=== PATIENT | female | born 1990 | race Two or more races ===

== ENCOUNTER 2018-05-26 11:24 | Outpatient (CLI) | payer MEDICAID, SELFPAY ==
[2018-05-26 11:51] VITALS: BP 140/81; PULSE 145; RESP 18; TEMP 36.8; O2SAT 100; BMI 28.3
[2018-05-26 12:16] LABS: Microscopic, Urine URINE MICROSCOPIC (MICROSCOPIC)
[2018-05-26 12:25] LABS: Appearance,Urine SL CLOUDY (Clear); Bilirubin,Urine Negative (Negative); Blood, Urine Negative (Negative); Color,Urine YELLOW (Yellow); Glucose,Urine (UA) Negative (Negative); Ketones,Urine Negative (Negative); Leukocyte Esterase,Urine Negative (Negative); Nitrate,Urine Negative (Negative); PH,Urine 6.5 (5.0-8.5); Protein,Urine Negative (Negative); Specific Gravity, Urine <= 1.005 (1.005-1.030); Urobilinogen,Urine 0.2 EU/dl (0.2)
[2018-05-26 12:34] LABS: Bacteria,Urine Trace /lpf; Squamous Epithelial Cell,Urine Occasional #/hpf (0-5)
--- NOTE | 2018-05-26 12:42 | US_ITS ---
US OB BPP w/Fet-Mat INDICATION: . Right-sided pain NO RECORDS ON FILE. Previous care in [place]:. ORDERING PHYSICIAN: Referral ProviderMD PATIENT AGE: 27 years TECHNIQUE: ultrasound transabdominal scanning. MW COMPARISON: No previous relevant studies. FINDINGS: Single viable intrauterine gestation. Cephalic position Currently. Placenta: Fundal and wraps lateral] to the right,... Placenta grade 1. No previa There is adequate amount fluid. ARSALAN 13.58 The cervix appears satisfactory. Closed and measuring 3.5 cm in length. Limited survey performed was unremarkable on the submitted images as in PACS. . ( Prior scans & Patient's earlier care was in [place]). No discrete anomalies identified on today's overview survey imaging by technologist. Active fetus.Three-vessel cord with satisfactory umbilical cord insertion. Limited views of brain & ventricles satisfactory. Posterior fossa unremarkable Images the face unremarkable... Region of [place] unremarkable Limited views of abdomen, chest,, & diaphragm unremarkable. Normal stomach bubble. Region of kidneys unremarkable. 4- chamber heart imaged. Cine loop included. LVOT imaged Submitted limited views of spine appear satisfactory. Arms and legs imaged & unremarkable. Appears to be a female fetus Maternal adnexa: No significant findings encountered. Measurements: Average ultrasound age 35 weeks 0 days. Gestational Age 31 week 3 days based on L2 MP of a 2418. Estimated due date by ultrasound age 506/30/2018. Estimated weight 2505 grams. +/- 366 g LMP Percentile 98% BPD = 34 week 6 day OFD = 37 week 2 day HC = 35 week 2 day AC = 34 week 6 day FL = 34 week 4 day Heart Rate = 150 BPM HC/AC = 1.02.(1.09-1.26.) CI = 77%.(70-86%). FL/BPD is 78% (71-87%. FL/AC is 22%. WNL ARSALAN = 13.58. Largest pocket measuring 5.02 cm at left lower quadrant ====== IMPRESSION: Single active intrauterine gestation 35 week 0 day Average Ultrasound Age ... Cephalic position. ... Fetus is active.. ... Today's limited overview anatomical survey was unremarkable. ... Placenta fundal and wraps to the right. Grade 1 . No previa ARSALAN = 13.5 .
--- NOTE | 2018-05-26 12:42 | US_ITS ---
US gallbladder Ordering Physician: Referral Provider Patient Age: 27 years: Female HISTORY: ITS.REASON: RIGHT SIDED FLANK PAIN 35 weeks average ultrasound age fetus TECHNIQUE: Upper quadrant ultrasound COMPARISON :No renal studies for comparison.. OB ultrasound from today noted FINDINGS Pancreas. Not well seen but region of pancreas grossly unremarkable Gallbladder partially contracted no gallstones. No sludge. Normal gallbladder wall thickness. Liver. Slight increased echogenicity may reflect mild fatty changes but but no focal lesions. No biliary ductal dilatation. Portal vein normal caliber and direction flow. Common duct normal diameter 3.2 mm at hilum of liver. No free fluid abdomen Right kidney 9.3 cm in length. Mild, minimal hydronephrosis evident on right. Appearance could be compatible with hydronephrosis of although cannot totally exclude a ureteral stone cortex is well-maintained right kidney. IMPRESSION Mild hydronephrosis of the right kidney with mild dilatation of the visualized proximal most right ureter. Appearance most likely reflecting hydronephrosis of but stone or other processes cannot be excluded Gallbladder & common duct unremarkable.. Liver. No focal findings: perhaps mild subtle diffuse fatty change
[2018-05-26 13:09] LABS: Anion Gap 13.9 mEq/L (5-15); Blood Urea Nitrogen 7 mg/dL (7-18); Calcium 8.8 mg/dL (8.5-10.1); Carbon Dioxide 24 mmol/L (21.0-32.0); Chloride 104 mmol/L (98-107); Creatinine Clearance Estimated 122 mL/min (50-200); Creatinine,Serum 0.75 mg/dL (0.55-1.02); Estimated Glomerular Filt Rate 93 ml/min (>60); GFR (African American) 113 ML/MIN (>60); Glucose 114 mg/dL (74-106); Potassium 3.9 mmoL/L (3.5-5.1); Sodium 138 mmol/L (136-145)
[2018-05-26 13:19] LABS: Basophils % 0.3 % (0.1-2.0); Eosinophils # 0.2 K/mm3 (0.0-0.4); Eosinophils % 1.8 % (0.1-12.0); Hematocrit 30.1 % (37.0-47.0); Hemoglobin 9.5 g/dL (12.2-16.2); Lymphocytes # 2.1 K/mm3 (0.7-4.5); Lymphocytes % 18.6 % (10-50); Mean Corpuscular HGB Conc 31.4 g/dL (31.8-35.4); Mean Corpuscular Hemoglobin 23.6 pg (27.0-31.2); Mean Corpuscular Volume 75.1 fl (81-99); Mean Platelet Volume 6.9 fl (7.4-10.4); Monocytes # 0.7 K/mm3 (0.1-1.0); Monocytes % 6.6 % (1.7-9.3); Neutrophils % 72.7 % (37.0-80.0); Platelet Count 327 K/mm3 (142-424); Red Blood Count 4.01 M/mm3 (4.20-5.40); Red Cell Distribution Width 14.6 % (11.5-17.5); White Blood Count 11.1 K/mm3 (4.8-10.8)
== END 2018-05-26 14:43 | disposition home or self-care (01) ==
LOC: OBOUT 11:29 → OB 11:30
PROVIDERS: Visit Provider Obstetrics & Gynecology
DX: O26.93 Pregnancy related conditions, unspecified, third trimester (principal); Z3A.31 31 weeks gestation of pregnancy; R10.11 Right upper quadrant pain
CPT/HCPCS: 36415; 59025; 76705; 76811; 76819; 76820; 80048; 81001; 85025

== ENCOUNTER → 2018-06-06 11:24 | Outpatient (CLI) | payer MEDICAID, SELFPAY | PROVIDERS: Visit Provider Obstetrics & Gynecology | DX: Z34.90 Encounter for supervision of normal pregnancy, unspecified, unspecified trimester (principal) | CPT/HCPCS: 86403 ==

== ENCOUNTER → 2018-06-06 12:35 | Outpatient (CLI) | payer MEDICAID, SELFPAY ==
[2018-06-06 13:05] LABS: Basophils % 0.2 % (0.1-2.0); Eosinophils # 0.2 K/mm3 (0.0-0.4); Eosinophils % 1.6 % (0.1-12.0); Hematocrit 30.7 % (37.0-47.0); Hemoglobin 9.7 g/dL (12.2-16.2); Mean Corpuscular HGB Conc 31.7 g/dL (31.8-35.4); Mean Corpuscular Hemoglobin 22.9 pg (27.0-31.2); Mean Corpuscular Volume 72.4 fl (81-99); Mean Platelet Volume 7.1 fl (7.4-10.4); Monocytes # 0.6 K/mm3 (0.1-1.0); Monocytes % 5.5 % (1.7-9.3); Neutrophils # 7.9 K/mm3 (1.8-7.8); Neutrophils % 73.7 % (37.0-80.0); Platelet Count 335 K/mm3 (142-424); Red Blood Count 4.24 M/mm3 (4.20-5.40); Red Cell Distribution Width 15.2 % (11.5-17.5); White Blood Count 10.7 K/mm3 (4.8-10.8)
[2018-06-06 14:31] LABS: Thyroid Stimulating Hormone 3.27 uIU/ml (0.358-3.740)
[2018-06-06 14:40] LABS: Amphetamine/Metha Screen,Urine Negative ng/mL (<1000); Barbiturates Screen,Urine Negative ng/mL (<200); Benzodiazepines Screen,Urine Negative ng/mL (<200); Cannabinoid Screen,Urine Negative ng/mL (<50); Cocaine Screen,Urine Negative ng/mL (<300); Methadone Screen,Urine Negative ng/mL (<300); Opiate Screen,Urine Negative ng/mL (<300); Phencyclidine Screen,Urine Negative ng/mL (<25)
[2018-06-07 18:06] LABS: HIV Screen 4th Generation wRfx Non Reactive (Non Reactive); Hepatitis B Surface Antigen Negative (Negative); Hepatitis C Antibody <0.1 s/co ratio (0.0-0.9); Rapid Plasma Reagin Ab Titer Non Reactive (NonRea<1:1); Rubella Antibodies, IgG 9.65 index (Immune >0.99)
== END ==
PROVIDERS: Visit Provider Obstetrics & Gynecology
DX: Z34.90 Encounter for supervision of normal pregnancy, unspecified, unspecified trimester (principal)
CPT/HCPCS: 36415; 80305; 84443; 85025; 86403; 86592; 86703; 86762; 86850; 87340; 87380; G0432

== ENCOUNTER 2018-06-23 05:23 | Inpatient (IN) ==
[2018-06-23 06:12] LABS: Basophils % 0.3 % (0.1-2.0); Eosinophils # 0.4 K/mm3 (0.0-0.4); Eosinophils % 3.4 % (0.1-12.0); Hematocrit 30.5 % (37.0-47.0); Hemoglobin 9.6 g/dL (12.2-16.2); Lymphocytes % 26.8 % (10-50); Mean Corpuscular HGB Conc 31.4 g/dL (31.8-35.4); Mean Corpuscular Hemoglobin 22.2 pg (27.0-31.2); Mean Corpuscular Volume 70.7 fl (81-99); Mean Platelet Volume 7.5 fl (7.4-10.4); Monocytes # 0.7 K/mm3 (0.1-1.0); Neutrophils % 63.4 % (37.0-80.0); Platelet Count 322 K/mm3 (142-424); Red Blood Count 4.31 M/mm3 (4.20-5.40); Red Cell Distribution Width 16.3 % (11.5-17.5); White Blood Count 11.1 K/mm3 (4.8-10.8)
[2018-06-23 06:22] LABS: Amphetamine/Metha Screen,Urine Negative ng/mL (<1000); Barbiturates Screen,Urine Negative ng/mL (<200); Benzodiazepines Screen,Urine Negative ng/mL (<200); Cannabinoid Screen,Urine Negative ng/mL (<50); Cocaine Screen,Urine Negative ng/mL (<300); Methadone Screen,Urine Negative ng/mL (<300); Opiate Screen,Urine Negative ng/mL (<300); Phencyclidine Screen,Urine Negative ng/mL (<25)
[2018-06-23 06:37] LABS: Anion Gap 11.5 mEq/L (5-15); Calcium 8.9 mg/dL (8.5-10.1); Potassium 4.5 mmoL/L (3.5-5.1)
--- NOTE | 2018-06-23 08:10 | Progress Note ---
[facility] Anesthesia Checklist - Structural Data Admitted From: Inpatient Planned Operative Procedure/s: c/section Consent for Planned Operative Procedure(s) Verified: Yes - Airway Assessment C-Spine Mobility Assessed: Yes TMJ Mobility Assessed: Yes Dentition: Good Dentition - Neurological Assessment Level of Consciousness: Awake, Alert, Appropriate - Anesthesia Plan Anesthesia Risk discussed: Yes Anesthesia Plan: Verified ASA Class: II Anesthesia Type: Spinal [facility] History I have reviewed the patient's past medical history: Yes *Have you ever received a pneumonia vaccine?: No *Have you received a flu vaccine this season?: No Other Surgeries: Yes: Amputation: No Fractures: No - *Social History Smoking Status: Current every day smoker Alcohol Intake: never Alcohol Intake Frequency:: other Substance Use Type: denies use *Occupational Status:: unemployed Family Hx:: No significant family history Para: 1
--- NOTE | 2018-06-23 08:11 | Progress Note ---
[facility] Anesthesia Record Part II Discharge Time: 08:35 Destination: Obstetric PACU nurse assessment reviewed?: Yes Patient Condition:: Good Anesthesia Complications:: None Swallowing reflex intact?: Yes Cyanosis?: No
--- NOTE | 2018-06-23 08:11 | Progress Note ---
[facility] Anesthesia Record Part I Intake, IV Amount: 1,500 Estimated blood loss (mL): 500 Urine output (mL): 225 Blood Pressure: 94/41 SaO2: 92 Pulse Rate: 115 Respiratory Rate: 12 Temperature: 97.9 F Patient is:: Awake, Stable Stable to PACU at:: 08:05
--- NOTE | 2018-06-23 08:12 | Operative Note ---
Date of procedure: 06/23/18 Pre-op Diagnosis:: 1. Term intrauterine . 2. Previous section. Post-op Diagnosis:: 1. Term intrauterine . 2. Previous section. 3. 9/9, 7 pound 3 ounce, 19 inch female infant, born at 0738. Procedure performed:: Repeat low transverse cervical section Surgeon:: Chele Ny MD Car Pilot(s):: Dr. Young CHEMICAL ANALYST:: Joaquín Kwan Anesthesia: spinal Estimated blood loss (mL): 400 Operative findings:: Term intrauterine , delivered. Operative note:: After the patient was prepped and draped in usual fashion and spinal anesthesia was administered, a low Pfannenstiel incision was made across the midline through the previous incision, and the fat and fascia were in the usual fashion, bleeders being clamped and coagulated along the way. The peritoneum was entered with Metzenbaum scissors, and extended above and below. The bladder peritoneum was sharply and bluntly dissected from the area of incision, and the bladder was protected with a bladder blade. The uterus was entered in the low transverse fashion with a knife, and the incision was extended bluntly, bilaterally. The baby was found to be in the LOP position of the vertex and, with appropriate fundal pressure, the head was easily delivered. There was no meconium, nor was there a nuchal cord. The baby's nasal and oropharynx were bulb suctioned, and the baby cried spontaneously on the abdomen, as was delivered. The cord was clamped and cut, 3 vessels were noted to be within the cord, and cord blood was obtained. The cord pH was 7.282. The baby was handed into the arms of the attending RN, was assigned Apgars of 9 at 1 minute and 9 at 5 minutes to this 7 pound 3 ounce, 19 inch female , born at 0738. Baby was taken to the nursery in excellent condition, along with the father, who is been present in the operating room. A ring forceps was used to assure adequate drainage to the cervix; this was then passed off the field as a nonsterile instrument. Uterus was closed in 2 layers, the first a running locked suture of #1 Vicryl as an endometrial layer, followed by a running unlocked suture of #1 Vicryl as a myometrial layer, imbricating over the first. The bladder peritoneum was closed with a running unlocked suture of 2-0 Vicryl. Blood and clots were then swept from the gutters, and the tubes and ovaries were inspected and found to be normal. The peritoneum was grasped with 3 Makayla clamps, and closed with a running semi-lock suture of 0 Vicryl. The muscle was approximated with a running unlocked suture of 0 Vicryl. The fascia was closed with a running locked suture of #1 Vicryl. The subcutaneous fat and Brianna's fascia were closed with a running unlocked suture of 2-0 Vicryl. The skin was closed with a subcuticular suture of 3-0 Vicryl, and appropriately dressed. The sponge and needle counts correct. The urine was clear in the Prieto catheter. The estimated blood loss was 400 cc. A pelvic examination at the close of the procedure expressed blood and clots from the involuting uterus, with IV Pitocin running. The patient tolerated the procedure well, and was taken to PACU in excellent condition. Her blood type is B+. Her rubella titer is immune. She plans to breast-feed. Condition: stable Disposition: PACU Specimens:: None Complications:: None
--- NOTE | 2018-06-23 16:35 | Progress Note ---
Internal Medicine - PN: Subj *Date: 06/23/18 *Time: 16:34 Interval history: This is day of surgery and delivery. The patient is afebrile. Vital signs stable. Wound clean. Abdomen soft. Lochia normal. Uterine fundus involuting well. Impression: Stable. Baby is doing well and breast-feeding. Exam Vital signs and Labs for Last 24 Hours: Temp Pulse Resp BP Pulse Ox 97.4 F L 94 H 16 112/72 99 06/23/18 08:35 06/23/18 08:35 06/23/18 08:35 06/23/18 08:35 06/23/18 08:35 Laboratory Results - last 24 hr 06/23/18 05:30: Urine Opiates Screen Negative, Urine Methadone Screen Negative, Ur Barbituates Screen Negative, Ur Phencyclidine Scrn Negative, Ur Amphetamines Screen Negative, U Benzodiazepines Scrn Negative, Urine Cocaine Screen Negative, U Marijuana (THC) Screen Negative 06/23/18 05:55: Sodium 136, Potassium 4.5, Chloride 105, Carbon Dioxide 24, Anion Gap 11.5, BUN 10, Creatinine 0.84, Estimated Creat Clear 114, Estimated GFR 82, Est GFR ( Amer) 99, Glucose 82, Calcium 8.9 06/23/18 05:55: WBC 11.1 H, RBC 4.31, Hgb 9.6 L, Hct 30.5 L, MCV 70.7 L, MCH 22.2 L, MCHC 31.4 L, RDW 16.3, Plt Count 322, MPV 7.5, Neut % (Auto) 63.4, Lymph % (Auto) 26.8, [place] % (Auto) 6.0, Eos % (Auto) 3.4, Baso % (Auto) 0.3, Neut # (Auto) 7.0, Lymph # (Auto) 3.0, [place] # (Auto) 0.7, Eos # (Auto) 0.4, Baso # (Auto) 0.0 06/23/18 05:55: Blood Type B Positive, Antibody Screen Negative 06/23/18 07:20: Urine Color Yellow, Urine Appearance Clear, Urine pH 7.0, Ur Specific [place] <= 1.005, Urine Protein Negative, Urine Glucose (UA) Negative, Urine Ketones Negative, Urine Blood Negative, Urine Nitrate Negative, Urine Bilirubin Negative, Urine Urobilinogen 0.2, Ur Leukocyte Esterase Negative, Urine WBC Occasional, Ur Squamous Epith Cells Occasional, Urine Bacteria Trace 06/23/18 07:44: Cord ABG pH 7.28 L I & O for Last 24 hours: Intake & Output 06/21/18 06/22/18 06/23/18 06/24/18 11:59 11:59 11:59 11:59 Intake Total 1710 / 1710 Output Total 75 / 75 Balance 1635 / 1635 Weight 156 lb 8 oz
[2018-06-23 21:14] VITALS: BP 118/76
--- NOTE | 2018-06-24 06:30 | Progress Note ---
Internal Medicine - PN: Subj *Date: 06/24/18 *Time: 06:29 Interval history: This is /postop day #1. The patient is afebrile. Vital signs stable. Wound clean. Abdomen soft. Lochia normal. Uterine fundus involuting well. Her hemoglobin is 9.6 g, but she is clinically stable. She is attempting to breast-feed but is also supplementing with a bottle. Pression: Stable. Exam Vital signs and Labs for Last 24 Hours: Temp Pulse Resp BP Pulse Ox 98.9 F 96 H 18 118/76 96 06/23/18 20:10 06/23/18 20:10 06/23/18 20:10 06/23/18 20:10 06/23/18 20:10 Laboratory Results - last 24 hr 06/23/18 05:30: Urine Opiates Screen Negative, Urine Methadone Screen Negative, Ur Barbituates Screen Negative, Ur Phencyclidine Scrn Negative, Ur Amphetamines Screen Negative, U Benzodiazepines Scrn Negative, Urine Cocaine Screen Negative, U Marijuana (THC) Screen Negative 06/23/18 05:55: Sodium 136, Potassium 4.5, Chloride 105, Carbon Dioxide 24, Anion Gap 11.5, BUN 10, Creatinine 0.84, Estimated Creat Clear 114, Estimated GFR 82, Est GFR ( Amer) 99, Glucose 82, Calcium 8.9 06/23/18 05:55: WBC 11.1 H, RBC 4.31, Hgb 9.6 L, Hct 30.5 L, MCV 70.7 L, MCH 22.2 L, MCHC 31.4 L, RDW 16.3, Plt Count 322, MPV 7.5, Neut % (Auto) 63.4, Lymph % (Auto) 26.8, [place] % (Auto) 6.0, Eos % (Auto) 3.4, Baso % (Auto) 0.3, Neut # (Auto) 7.0, Lymph # (Auto) 3.0, Bureau # (Auto) 0.7, Eos # (Auto) 0.4, Baso # (Auto) 0.0 06/23/18 05:55: Blood Type B Positive, Antibody Screen Negative 06/23/18 07:20: Urine Color Yellow, Urine Appearance Clear, Urine pH 7.0, Ur Specific [place] <= 1.005, Urine Protein Negative, Urine Glucose (UA) Negative, Urine Ketones Negative, Urine Blood Negative, Urine Nitrate Negative, Urine Bilirubin Negative, Urine Urobilinogen 0.2, Ur Leukocyte Esterase Negative, Ur ine WBC Occasional, Ur Squamous Epith Cells Occasional, Urine Bacteria Trace 06/23/18 07:44: Cord ABG pH 7.28 L I & O for Last 24 hours: Intake & Output 06/21/18 06/22/18 06/23/18 06/24/18 11:59 11:59 11:59 11:59 Intake Total 1710 / 1710 Output Total 75 / 75 Balance 1635 / 1635 Weight 156 lb 8 oz
[2018-06-24 07:20] LABS: Basophils % 0.1 % (0.1-2.0); Eosinophils # 0.1 K/mm3 (0.0-0.4); Eosinophils % 0.6 % (0.1-12.0); Hematocrit 27.5 % (37.0-47.0); Hemoglobin 8.6 g/dL (12.2-16.2); Lymphocytes # 2.7 K/mm3 (0.7-4.5); Mean Corpuscular HGB Conc 31.1 g/dL (31.8-35.4); Mean Corpuscular Hemoglobin 21.9 pg (27.0-31.2); Mean Corpuscular Volume 70.3 fl (81-99); Mean Platelet Volume 7.2 fl (7.4-10.4); Monocytes # 1.1 K/mm3 (0.1-1.0); Monocytes % 5.1 % (1.7-9.3); Neutrophils # 18.4 K/mm3 (1.8-7.8); Neutrophils % 82.2 % (37.0-80.0); Platelet Count 295 K/mm3 (142-424); Red Blood Count 3.92 M/mm3 (4.20-5.40); Red Cell Distribution Width 16.7 % (11.5-17.5); White Blood Count 22.4 K/mm3 (4.8-10.8)
--- NOTE | 2018-06-24 10:52 | Pharmacy Consult Notes ---
[facility] Pharmacy VTE Monitoring - Patient Demographics Admission date: 06/23/18 Report Date: 06/24/18 Time: 10:52 Allergies/Adverse Reactions: Patient Allergies No Known Allergies Allergy (Verified 06/12/18 10:40) Height: 1.55 m Weight: 70.987 kg - VTE Risk Labs: VTE Related Lab Results Hgb 8.6 g/dL (12.2-16.2) L 06/24/18 06:50 Hct 27.5 % (37.0-47.0) L 06/24/18 06:50 Plt Count 295 K/mm3 (142-424) 06/24/18 06:50 BUN 10 mg/dL (7-18) 06/23/18 05:55 Creatinine 0.84 mg/dL (0.55-1.02) 06/23/18 05:55 Estimated Creat Clear 114 mL/min (50-200) 06/23/18 05:55 - Prophylaxis VTE Prophylaxis Ordered?: Yes Types of VTE Prophylaxis: IPCS Thigh High Location of Applied Device: Bilateral Lower Extremeties - VTE Diagnosis Confirmed Treatment or plan recommended: Continue Current Treatment
[2018-06-24 11:50] LABS: Eosinophils % 1 % (0-3); Lymphocytes % 11 % (10-50); Monocytes % 4 % (2-9); Neutrophils % 80 % (42-76); Total Cells Counted 100
[2018-06-24 11:53] LABS: Hypochromasia 1+
--- NOTE | 2018-06-24 15:31 | Progress Note ---
Internal Medicine - PN: Subj *Date: 06/24/18 *Time: 15:31 Interval history: Doing well. Breast-feeding going better. Patient has been ambulating and has had a shower. Motion: Improving. Exam Vital signs and Labs for Last 24 Hours: Temp Pulse Resp BP Pulse Ox 98.9 F 96 H 18 118/76 96 06/23/18 20:10 06/23/18 20:10 06/23/18 20:10 06/23/18 20:10 06/23/18 20:10 Laboratory Results - last 24 hr 06/24/18 06:50: WBC 22.4 H* D, RBC 3.92 L, Hgb 8.6 L, Hct 27.5 L, MCV 70.3 L, MCH 21.9 L, MCHC 31.1 L, RDW 16.7, Plt Count 295, MPV 7.2 L, Neut % (Auto) 82.2 H, Lymph % (Auto) 12.0, [place] % (Auto) 5.1, Eos % (Auto) 0.6, Baso % (Auto) 0.1, Neut # (Auto) 18.4 H, Lymph # (Auto) 2.7, [place] # (Auto) 1.1 H, Eos # (Auto) 0.1, Baso # (Auto) 0.0, Total Counted 100, Neutrophils % (Manual) 80 H, Band Neutrophils % 4.0, Lymphocytes % (Manual) 11, Monocytes % (Manual) 4, Eosinophils % (Manual) 1, Platelet Estimate Normal, Hypochromasia 1+, M icrocytosis 1+ I & O for Last 24 hours: Intake & Output 06/22/18 06/23/18 06/24/18 06/25/18 11:59 11:59 11:59 11:59 Intake Total 1710 / 1710 Output Total 75 / 75 Balance 1635 / 1635 Weight 156 lb 8 oz
--- NOTE | 2018-06-25 08:46 | Progress Note ---
Internal Medicine - PN: Subj *Date: 06/25/18 *Time: 08:45 Interval history: This is /postop day #2. The patient is afebrile. Vital signs stable. Wound clean. Abdomen soft. Lochia normal. Uterine fundus involuting well. She is breast-feeding. Her hemoglobin has stabilized at 8.6 g, but she is clinically stable. Impression: Stable. Exam Vital signs and Labs for Last 24 Hours: Temp Pulse Resp BP Pulse Ox 98.9 F 96 H 18 118/76 96 06/23/18 20:10 06/23/18 20:10 06/23/18 20:10 06/23/18 20:10 06/23/18 20:10 Laboratory Results - last 24 hr 06/24/18 06:50: Total Counted 100, Neutrophils % (Manual) 80 H, Band Neutrophils % 4.0, Lymphocytes % (Manual) 11, Monocytes % (Manual) 4, Eosinophils % (Manual) 1, Platelet Estimate Normal, Hypochromasia 1+, Microcytosis 1+ I & O for Last 24 hours: Intake & Output 06/22/18 06/23/18 06/24/18 06/25/18 11:59 11:59 11:59 11:59 Intake Total 1710 / 1710 Output Total 75 / 75 Balance 1635 / 1635 Weight 156 lb 8 oz
--- NOTE | 2018-06-26 07:08 | Progress Note ---
Internal Medicine - PN: Subj *Date: 06/26/18 *Time: 07:07 Interval history: Is /postop day #3. The patient is afebrile. Vital signs stable. Wound clean. Abdomen soft. Lochia normal. Uterine fundus has involuted well. Impression: Stable. She is breast-feeding. She will be discharged today. Exam Vital signs and Labs for Last 24 Hours: Temp Pulse Resp BP Pulse Ox 98.9 F 96 H 18 118/76 96 06/23/18 20:10 06/23/18 20:10 06/23/18 20:10 06/23/18 20:10 06/23/18 20:10 I & O for Last 24 hours: Intake & Output 06/23/18 06/24/18 06/25/18 06/26/18 11:59 11:59 11:59 11:59 Intake Total 1710 / 1710 Output Total 75 / 75 Balance 1635 / 1635 Weight 156 lb 8 oz
--- NOTE | 2018-06-26 07:11 | Discharge Summary ---
General - General Admission date:: 06/23/18 Discharge date: 06/26/18 (This 27-year-old 2, now para 2, Ab0 [place] female was admitted at 39 weeks of gestation for a repeat section. She had had her early care in [place]. On the date of admission, she was taken to the operating room, where she underwent a repeat low transverse cervical section under spinal anesthesia, without complications. The baby was an 9/9, 7 pound 3 ounce, 19 inch female , who is breast- feeding and is done well. and postoperatively, the patient is doing well. She is eating and ambulating, and has had a bowel movement. Her wound is clean. Her abdomen is soft. Her lochia is normal. Her uterine fundus has involuted well. She is breast-feeding. Her hemoglobin on admission was 9.6 g; it is 8.6 g, but she is clinically stable. She is discharged home on the third /postoperative day on iron and vitamins, and on Percocet 5/325 (#20), 1 p.o. every 4-6 hours as needed pain. She is given appropriate instructions as to diet, exercise, and wound care, and she is to return the office in 2 weeks for follow-up. Her blood type is B+. Her rubella titer is immune. She is not a smoker.) Hospital Course Rhogam Administration: Not Indicated Objective Vital signs: Temp Pulse Resp BP Pulse Ox 98.9 F 96 H 18 118/76 96 06/23/18 20:10 06/23/18 20:10 06/23/18 20:10 06/23/18 20:10 06/23/18 20:10 Discharge Plan - Patient Discharge Instructions Additional Instructions: No heavy lifting, no strenuous activity, nothing in the vagina for 6 weeks, no driving while taking prescription narcotics. Patient Instructions: Depression, Hemorrhage, [facility] Post Discharge Instructions - Follow up Plan Follow up with: Chele Ny MD [Staff Physician] - 07/07/18 10:30 am Home Medications: Home Medications Medication Instructions Recorded Confirmed Type No Known Home Medications 06/06/18 06/23/18 History Prescriptions/Medication Reconciliation: No Action No Known Home Medications
== END 2018-06-26 09:00 | disposition home or self-care (01) | DRG 788 ==
LOC: OB 05:23
PROVIDERS: ADMIT Obstetrics & Gynecology; ATTEND Obstetrics & Gynecology

== ENCOUNTER 2021-07-26 19:08 | Emergency (ER) | payer OTHER, SELFPAY ==
[2021-07-26 19:30] VITALS: BP 127/80; PULSE 80; RESP 22; TEMP 36.9; O2SAT 100; BMI 18.8
--- NOTE | 2021-07-26 19:50 | HMH.EDUTC ---
[facility] Disposition Clinical Impression: Laceration Disposition: Home, Self-Care Condition on Discharge: Good Instructions: Laceration Repair, DI for Laceration Repair -- Simple Additional Instructions: Suture instructions: You have required stitches today. Please read the following instructions so you know how to care for them: 1. Keep wound area dry for the first 24 hours. 2 May clean gently with mild soap and water, after 48 hours to prevent crusting over suture knots. 3. You may shower if your provider gives permission but do not take a bath until the skin is healed.. 4. Never leave a wet dressing or Band-Aid on your stitches as this allows bacteria to reach the area and may cause infection. Band-aids can cause the wound to sweat and not recommended to wear for long periods of time Watch for signs of infection: Increasing redness, tenderness or warmth around the suture site Unusual swelling around the site Appearance of pus around each suture or any red streaks Fever If you develop any of the above signs or symptoms of infection, Follow up with Family Physician immediately 5. Suture removal in _7-10___days 6. Return to [facility] or follow up with family doctor for removal. This can be done by any medical provider during regular hours on Saturday through Saturday, by appointment. Referrals: Provider,Referral, [Primary Care Provider] - Time of Disposition: 19:57 Medical Decision Making - Kalpesh Inquiry Pt receiving controlled substance: No Kalpesh was queried for this patient: No Vital Signs: 07/26/21 19:30 Temperature 98.4 F Temperature Source Oral Pulse Rate [Right Brachial] 80 Respiratory Rate 22 Blood Pressure [Right Arm] 127/80 Blood Pressure Mean [Right Arm] 95 Blood Pressure Source [Right Arm] Automatic Cuff Blood Pressure Position [Right Arm] Sitting 02 Sat by Pulse Oximetry 100 Orders (Tests/Meds): ED MEDICATIONS Discontinued Medications Generic Name Dose Route Start Last Admin Trade Name Freq PRN Reason Stop Dose Admin Tetanus/Reduced Diphtheria/Acell Pertussis 0.5 ml 07/26/21 19:39 07/26/21 19:41 Tet/Diphth/Pert-Adult 0.5ml Syringe IM 07/26/21 19:40 0.5 ml .ONCE ONE Administration [facility] HPI - General Stated complaint: AO 07/29 lac to L Thumb Time Seen by Provider: 07/26/21 19:50 Description of Symptoms (Recalled from Triage Doc. by RN): pt states that she was cutting veggies on a cutting board when the knife slipped and caused a lac to the top of her left thumb that happened at 1900 HEENT Symptoms (Recalled from RN notes): No Resp Symptoms (Recalled from RN notes): No Skin Symptoms (Recalled from RN notes): Yes MS Symptoms (Recalled from RN notes): No Functional Status (Recalled from RN notes): wnl - History of Present Illness Provider Complaint: Patient states that she was cutting up veggies when the knife slipped and cut her on the left hand States that she is able to move thumb and denies numbness no active bleeding - Related Data Previous Rx's Medication Instructions Recorded Oxycodone HCl [OxyIR 5mg tablet] 5 mg PO Q4HP PRN #20 tab 06/26/18 norgestimate-ethinyl estradiol 1 tab PO DAILY #28 tab 07/28/18 0.18 mg/0.215mg/0.25mg-35 mcg(28)tablet Allergies Allergy/AdvReac Type Severity Reaction Status Date / Time No Known Allergies Allergy Verified 07/28/18 10:13 - Worker's Comp Is this a Worker's Comp case?: No [facility] History - Hepatitis A Screen Attestation statement:: This patient has been screened for Hepatitis A risk factors. I have reviewed the patient's past medical history: Yes Other Surgeries: Yes: Amputation: No Fractures: No Comment: P* C/S---2012 - Social History Smoking Status: Never smoker Alcohol Intake: never Alcohol Intake Frequency:: other Substance Use Type: denies use Occupational Status: employed Household Members: family Family Hx:: No significant family history Comment: P* C/S,FEMALE---2012. R C
[2021-07-26 20:21] VITALS: BP 127/80; PULSE 80; RESP 16; TEMP 36.9; O2SAT 98
== END 2021-07-26 20:24 | disposition home or self-care (01) ==
PROVIDERS: Emergency Provider Nurse Practitioner
DX: S61.012A Laceration without foreign body of left thumb without damage to nail, initial encounter (principal); W26.0XXA Contact with knife, initial encounter; Y92.010 Kitchen of single-family (private) house as the place of occurrence of the external cause; Z23 Encounter for immunization
CPT/HCPCS: 12001; 90471; 90715; 99213; G0463